=== PATIENT | female | born 1965 | race Caucasian/White ===

== ENCOUNTER 2021-04-25 00:38 | Emergency (ER) | payer MEDICAID ==
[~2021-04-25] VITALS: Ht 157.5 cm; Wt 73.6 kg
[2021-04-25 00:39] VITALS: BP 166/75
[2021-04-25] MEDS ORDERED: BUPIVACAINE 0.25% ONE (03:41)
[2021-04-25] MEDS ORDERED: LIDOCAINE-MPF 1%, 5ML ONE (03:41)
[2021-04-25] MEDS ORDERED: LIDOCAINE-MPF 1%, 5ML INFIL ONE (04:00)
[2021-04-25] MEDS ORDERED: BUPIVACAINE 0.25% INFIL ONE (04:00)
[2021-04-25] MEDS ORDERED: PLEASE ENTER ALLERGIES MC SCH (04:00)
== END 2021-04-25 04:44 | disposition home or self-care (01) ==
LOC: ED 04:00
DX: K04.7 Periapical abscess without sinus (principal); K02.9 Dental caries, unspecified; K08.89 Other specified disorders of teeth and supporting structures; F17.210 Nicotine dependence, cigarettes, uncomplicated; F11.10 Opioid abuse, uncomplicated; Z72.9 Problem related to lifestyle, unspecified
CPT/HCPCS: 41800; 99406